=== PATIENT | female | born 1980 | race Caucasian/White ===

== ENCOUNTER 2016-10-09 10:06 | Emergency (ER) | payer BC, OTHER ==
--- NOTE | 2016-10-09 10:20 | ER Document Report ---
ED Medical Screen (RME) - General Stated Complaint: THROAT PAIN Mode of Arrival: Ambulatory Information source: Patient Notes: c/o sore throat, "feels like food is stuck" that started around 1920 last night. She had just eaten a small bite of chicken and the feeling is still present. Reports "throat spasms" anytime she eats or drink. Has almost empty bottle of mtn dew with her. Has tried pepto bismol which she wasn't able to swallow. +vomiting, +drooling, +difficulty swallowing, no difficulty breathing Mother has history of esophageal dilatation I have greeted and performed a rapid initial assessment of this patient. A comprehensive ED assessment and evaluation of the patient, analysis of test results and completion of the medical decision making process will be conducted by additional ED providers. - Related Data Allergies/Adverse Reactions: No Known Drug Allergies Allergy (Verified 10/09/16 10:14) Physical Exam - Vital signs Vitals: Temp Pulse Resp BP Pulse Ox 98.3 F 91 18 125/85 98 10/09/16 10:10/09/16 10:10/09/16 10:10/09/16 10:10/09/16 10:13 - Notes Notes: Oropharynx: clear, without edema or malocclusion. No visible foreign body Lungs CTAB Course - Vital Signs Vital signs: Temp Pulse Resp BP Pulse Ox 98.3 F 91 18 125/85 98 10/09/16 10:13 10/09/16 10:13 10/09/16 10:13 10/09/16 10:13 10/09/16 10:13
[2016-10-09] MEDS ORDERED: NORMAL SALINE 1000 ML 1,000 ML IV ONE (10:49)
[2016-10-09] MEDS ORDERED: GLUCAGON,HUMAN RECOMB 1 MG INJ IV ONE (10:50)
[2016-10-09] MEDS ORDERED: ONDANSETRON HCL INJ/PF 4 MG/2 ML SDV IV ONE (10:53)
[2016-10-09 11:35] LABS: ABSOLUTE BASOPHILS # (AUTO) 0.1 10^3/uL (0.0-0.2); ABSOLUTE EOSINOPHILS # (AUTO) 0.3 10^3/uL (0.0-0.6); ABSOLUTE LYMPHOCYTES (AUTO) 2.1 10^3/uL (0.5-4.7); ABSOLUTE MONOCYTES (AUTO) 0.6 10^3/uL (0.1-1.4); ABSOLUTE NEUT (AUTO) 7.2 10^3/uL (1.7-8.2); BASOPHILS % (AUTO) 0.5 % (0-2); HEMATOCRIT 40.5 % (36.0-47.0); HEMOGLOBIN 13.9 g/dL (12.0-15.5); HGB HCT DIFFERENCE 1.2; MEAN CORPUSCULAR HEMOGLOBIN 29.6 pg (27.0-33.4); MEAN CORPUSCULAR HGB CONC 34.4 g/dL (32.0-36.0); MEAN CORPUSCULAR VOLUME 86 fl (80-97); MONOCYTES % (AUTO) 6.1 % (3-13); RED BLOOD COUNT 4.71 10^6/uL (3.72-5.28); RED CELL DISTRIBUTION WIDTH 13.7 % (11.5-14.0); SEGMENTED NEUTROPHILS % (AUTO) 70.4 % (42-78); WHITE BLOOD COUNT 10.2 10^3/uL (4.0-10.5)
[2016-10-09 11:40] LABS: PROTHROMBIN TIME 12.3 SEC (11.4-15.4)
[2016-10-09 11:41] LABS: PARTIAL THROMBOPLASTIN TIME 27.9 SEC (23.5-35.8)
[2016-10-09 11:55] LABS: ANION GAP 13 (5-19); BLOOD UREA NITROGEN 11 mg/dL (7-20); CALCIUM 10.5 mg/dL (8.4-10.2); CARBON DIOXIDE 28 mmol/L (22-30); CHLORIDE 102 mmol/L (98-107); GLUCOSE 104 mg/dL (75-110); POTASSIUM 4.3 mmol/L (3.6-5.0); SODIUM 142.9 mmol/L (137-145)
--- NOTE | 2016-10-09 12:43 | ER Document Report ---
ED General - General Chief Complaint: Foreign Body Stated Complaint: THROAT PAIN Mode of Arrival: Ambulatory TRAVEL OUTSIDE OF THE [place] IN LAST 30 DAYS: No - HPI Patient complains to provider of: difficulty in swallowing food impaction Notes: Patient coming in after eating chicken night prior to arrival approximate 1800 hrs. states that she 1 by fellow get stuck in her esophagus unable to swallow anything since that time patient states whenever she drinks water she does vomit. Otherwise patient is talking complete sentences no obvious distress. Patient states this has never happened before. Denies fevers chills diarrhea - Related Data Allergies/Adverse Reactions: No Known Drug Allergies Allergy (Verified 10/09/16 10:14) Past Medical History - General Information source: Patient - Social History Smoking Status: Never Smoker Chew tobacco use (# tins/day): No Frequency of alcohol use: Occasional Drug Abuse: None Family History: Reviewed & Not Pertinent Patient has suicidal ideation: No Patient has homicidal ideation: No Renal/ Medical History: Denies: Hx Peritoneal Dialysis Review of Systems - Review of Systems Constitutional: No symptoms reported EENT: Other - Difficulty swallowing. Cardiovascular: No symptoms reported Respiratory: No symptoms reported Gastrointestinal: No symptoms reported Genitourinary: No symptoms reported Female Genitourinary: No symptoms reported Musculoskeletal: No symptoms reported Skin: No symptoms reported Hematologic/Lymphatic: No symptoms reported Neurological/Psychological: No symptoms reported Physical Exam - Vital signs Vitals: Temp Pulse Resp BP Pulse Ox 98.3 F 91 18 125/85 98 10/09/16 10:13 10/09/16 10:13 10/09/16 10:13 10/09/16 10:13 10/09/16 10:13 Interpretation: Normal - General General appearance: Appears well, Alert - HEENT Head: Normocephalic, Atraumatic Eyes: Normal Pupils: PERRL - Respiratory Respiratory status: No respiratory distress Chest status: Nontender Breath sounds: Normal Chest palpation: Normal - Cardiovascular Rhythm: Regular Heart sounds: Normal auscultation Murmur: No - Abdominal Inspection: Normal Distension: No distension Bowel sounds: Normal Tenderness: Nontender Organomegaly: No organomegaly - Back Back: Normal, Nontender - Extremities General upper extremity: Normal inspection, Nontender, Normal color, Normal ROM , Normal temperature General lower extremity: Normal inspection, Nontender, Normal color, Normal ROM , Normal temperature, Normal weight bearing. No: Brain's sign - Neurological Neuro grossly intact: Yes Cognition: Normal Orientation: AAOx4 [place] Coma Scale Eye Opening: Spontaneous [place] Coma Scale Verbal: Oriented [place] Coma Scale Motor: Obeys Commands [place] Coma Scale Total: 15 Speech: Normal Motor strength normal: LUE, RUE, LLE, RLE Sensory: Normal - Psychological Associated symptoms: Normal affect, Normal mood - Skin Skin Temperature: Warm Skin Moisture: Dry Skin Color: Normal Course - Re-evaluation Re-evalutation: 10/09/16 18:28 Patient was given Zofran and glucagon as this patient did vomit up her food bolus. Patient after the vomiting episode was able to tolerate by mouth orally. Patient was encouraged to stick to a clear liquid diet for the next 24 hours. Patient on antiacid medication. Patient discharged home - Vital Signs Vital signs: Temp Pulse Resp BP Pulse Ox 98.7 F 93 16 141/100 H 97 10/09/16 13:42 10/09/16 13:42 10/09/16 13:42 10/09/16 13:42 10/09/16 13:42 - Laboratory Result Diagrams: 10/09/16 11:16 10/09/16 11:16 Laboratory results interpreted by me: 10/09/16 11:16 Calcium 10.5 H Discharge - Discharge Clinical Impression: Food impaction of esophagus Qualifiers: Encounter type: initial encounter Qualified Code(s): T18.128A - Food in esophagus causing other injury, initial encounter Condition: Good Disposition: HOME, SELF-CARE Instructions: Esophageal Food Impaction ([facility]) Additional Instructions: Please take medication as prescribed. Please take to a clear liquid diet for the next 24 hours and advance her diet as tolerated. I would highly recommend following up with a GI specialist. Prescriptions: Magic Mouthwash 5 ml PO Q6 PRN #120 PRN Reason: Famotidine [Pepcid 20 mg Tablet] 20 mg PO BID #20 tablet Forms: Return to Work
[2016-10-09 13:58] VITALS: BP 141/100
== END 2016-10-09 13:44 | disposition home or self-care (01) ==
LOC: ER 10:06
DX: T18.128A Food in esophagus causing other injury, initial encounter (principal); R11.10 Vomiting, unspecified; R13.10 Dysphagia, unspecified; X58.XXXA Exposure to other specified factors, initial encounter
CPT/HCPCS: 99284; 96361; 96374; 96375; 36415; 84703; 85025; 85610; 85730; 80048; 70360; J1610; J2405; J7030